=== PATIENT | male | born 2000 | race Caucasian/White ===

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

== ENCOUNTER 2021-02-26 14:18 | Emergency (ER) | payer SELFPAY ==
[~2021-02-26] VITALS: Ht 195.6 cm; Wt 102.3 kg
[2021-02-26 15:02] VITALS: BP 148/66; TEMP 98.2
[2021-02-26] MEDS ORDERED: CLEOCIN HC150 MG/CAP PO (16:55)
[2021-02-26 17:04] VITALS: PULSE 72
== END 2021-02-26 17:04 | disposition home or self-care (01) ==
LOC: COL.ER 14:18
DX: L03.012 Cellulitis of left finger (principal); S60.012A Contusion of left thumb without damage to nail, initial encounter; L08.89 Other specified local infections of the skin and subcutaneous tissue; W55.22XA Struck by cow, initial encounter; Y92.59 Other trade areas as the place of occurrence of the external cause